=== PATIENT | male | born 2000 | race Caucasian/White ===

== ENCOUNTER 2020-08-18 14:20 | Inpatient (IN) ==
[2020-08-18 16:22] LABS: Basophils # 0.1 10*3/uL (0.0-0.2); Basophils % 0.5 % (0.0-0.8); Eosinophils # 1.1 10*3/uL (0.0-0.87); Eosinophils % 11.9 % (0.00-10.9); Hematocrit 34.5 VOL% (42.0-52.0); Hemoglobin 12.2 GM/DL (14.0-18.0); Immature Granulocytes % 0.5 %; Immature Granulocytes Absolute 0.05 #; Lymphocytes # 1.1 10*3/uL (1.4-4.0); Lymphocytes % 11.8 % (21.2-54.2); Mean Corpuscular HGB Conc 35.4 GM/DL (32-36); Mean Corpuscular Volume 89.1 FL (87-102); Mean Platelet Volume 10.2 FL (9.6-12.0); Neutrophils % 62.3 % (38.7-73.9); Platelet Count 246 T/CUMM (130-400); Red Blood Count 3.87 MC/CUMM (3.8-5.5); Red Cell Distribution Width 12.9 % (9.3-17.3); White Blood Count 9.3 T/CUMM (4-12)
[2020-08-18 16:32] LABS: INR 1.2; PT Patient Result 13.7 SECS (10.5-12.0)
[2020-08-18] MEDS ORDERED: SODIUM CHLORIDE 0.9% 1,000 ML IV STA (16:35)
[2020-08-18 16:41] LABS: Bilirubin,Total 0.9 MG/DL (0.2-1.0); Calcium 7.9 MG/DL (8.5-10.1); Osmolality,Calculated 266.2 MOS/KG (273-304); Total Protein 6.3 G/DL (6.4-8.2)
[2020-08-18 17:09] LABS: Eosinophils 9 % (0-10); Lymphocytes 11 % (20-55); Segmented Neutrophils 72 % (50-85); Total Cells Counted 100
[2020-08-18] MEDS ORDERED: metroNIDAZOLE INJ 500 MG/100 ML PREMIX IV STA (17:38)
[2020-08-18] MEDS ORDERED: cefTRIAXone 1,000 MG in SODIUM CHLORIDE 0.9% 100 ML IV STA (17:38)
[2020-08-18] MEDS ORDERED: DEXTROSE 50% 25 GM/50 ML VIAL IV PRN (18:11)
[2020-08-18] MEDS ORDERED: GLUCAGON 1 MG VIAL IM PRN (18:11)
[2020-08-18 21:56] LABS: Hematocrit 30.5 VOL% (42.0-52.0)
[2020-08-19] MEDS: ACETAMINOPHEN 325 MG TABLET PO PRN (03:21)
[2020-08-19] MEDS: SODIUM CHLORIDE 0.9% 1,000 ML IV SCH ×4 (04:20→21:23)
[2020-08-19 05:43] LABS: Basophils % 0.5 % (0.0-0.8); Eosinophils # 1.3 10*3/uL (0.0-0.87); Eosinophils % 15.5 % (0.00-10.9); Hematocrit 32.4 VOL% (42.0-52.0); Hemoglobin 11.4 GM/DL (14.0-18.0); Immature Granulocytes % 0.7 %; Immature Granulocytes Absolute 0.06 #; Lymphocytes # 0.8 10*3/uL (1.4-4.0); Lymphocytes % 9.9 % (21.2-54.2); Mean Corpuscular HGB Conc 35.2 GM/DL (32-36); Mean Corpuscular Volume 89.5 FL (87-102); Mean Platelet Volume 10.5 FL (9.6-12.0); Monocytes % 14.5 % (1.7-12.7); Neutrophils % 58.9 % (38.7-73.9); Platelet Count 223 T/CUMM (130-400); Red Blood Count 3.62 MC/CUMM (3.8-5.5); Red Cell Distribution Width 12.7 % (9.3-17.3); White Blood Count 8.5 T/CUMM (4-12)
[2020-08-19 06:02] LABS: Calcium 7.9 MG/DL (8.5-10.1); Osmolality,Calculated 270.8 MOS/KG (273-304)
[2020-08-19 06:06] LABS: Band Neutrophils 10 % (0-10); Eosinophils 17 % (0-10); Lymphocytes 14 % (20-55); Platelet Estimate Normal; Segmented Neutrophils 53 % (50-85); Total Cells Counted 100
[2020-08-19] MEDS: PANTOPRAZOLE 40 MG TABLET PO SCH (08:58)
[2020-08-19] MEDS: POTASSIUM CHLORIDE 20 MEQ PACK PO SCH ×2 (08:58→10:32)
[2020-08-19 10:16] LABS: Hematocrit 31.5 VOL% (42.0-52.0); Hemoglobin 10.8 GM/DL (14.0-18.0)
[2020-08-19 15:53] LABS: Hematocrit 30.6 VOL% (42.0-52.0); Hemoglobin 10.3 GM/DL (14.0-18.0)
[2020-08-20 04:44] LABS: Basophils % 0.6 % (0.0-0.8); Eosinophils % 28.1 % (0.00-10.9); Hematocrit 30.5 VOL% (42.0-52.0); Hemoglobin 10.6 GM/DL (14.0-18.0); Immature Granulocytes Absolute 0.07 #; Lymphocytes # 0.8 10*3/uL (1.4-4.0); Lymphocytes % 11.6 % (21.2-54.2); Mean Corpuscular HGB Conc 34.8 GM/DL (32-36); Mean Corpuscular Volume 90.8 FL (87-102); Mean Platelet Volume 10.5 FL (9.6-12.0); Monocytes % 10.9 % (1.7-12.7); Neutrophils % 47.8 % (38.7-73.9); Platelet Count 220 T/CUMM (130-400); Red Blood Count 3.36 MC/CUMM (3.8-5.5); Red Cell Distribution Width 12.9 % (9.3-17.3); White Blood Count 7.3 T/CUMM (4-12)
[2020-08-20 04:56] LABS: Calcium 7.8 MG/DL (8.5-10.1); Osmolality,Calculated 270.7 MOS/KG (273-304); Potassium 3.6 MMOL/L (3.5-5.1)
[2020-08-20 05:06] LABS: Band Neutrophils 3 % (0-10); Eosinophils 29 % (0-10); Lymphocytes 12 % (20-55); Platelet Estimate Adequate; Segmented Neutrophils 43 % (50-85); Total Cells Counted 100
[2020-08-20 05:07] LABS: Hypochromasia 1+; Microcytosis 1+; Ovalocytes Slight
[2020-08-20] MEDS: SODIUM CHLORIDE 0.9% 1,000 ML IV SCH ×2 (06:33→14:22)
[2020-08-20] MEDS: PANTOPRAZOLE 40 MG TABLET PO SCH (08:01)
[2020-08-20] MEDS: ACETAMINOPHEN 325 MG TABLET PO PRN (14:38)
[2020-08-20] MEDS: MESALAMINE 800 MG TABLET PO SCH ×2 (14:38→21:57)
[2020-08-21] MEDS: ACETAMINOPHEN 325 MG TABLET PO PRN (06:35)
[2020-08-21 07:21] LABS: Basophils % 0.6 % (0.0-0.8); Eosinophils # 2.5 10*3/uL (0.0-0.87); Hematocrit 32.8 VOL% (42.0-52.0); Immature Granulocytes Absolute 0.07 #; Lymphocytes % 13.8 % (21.2-54.2); Mean Corpuscular HGB Conc 33.5 GM/DL (32-36); Mean Corpuscular Volume 92.7 FL (87-102); Mean Platelet Volume 10.2 FL (9.6-12.0); Monocytes % 11.3 % (1.7-12.7); Neutrophils % 38.3 % (38.7-73.9); Platelet Count 266 T/CUMM (130-400); Red Blood Count 3.54 MC/CUMM (3.8-5.5); Red Cell Distribution Width 12.8 % (9.3-17.3); White Blood Count 7.2 T/CUMM (4-12)
[2020-08-21 07:41] LABS: Calcium 8.1 MG/DL (8.5-10.1); Osmolality,Calculated 274.5 MOS/KG (273-304); Potassium 3.6 MMOL/L (3.5-5.1)
[2020-08-21 09:41] LABS: Band Neutrophils 3 % (0-10); Eosinophils 37 % (0-10); Lymphocytes 17 % (20-55); Platelet Estimate Normal; Segmented Neutrophils 32 % (50-85); Total Cells Counted 100
[2020-08-21] MEDS: MESALAMINE 800 MG TABLET PO SCH ×3 (10:01→20:12)
[2020-08-21] MEDS: PANTOPRAZOLE 40 MG TABLET PO SCH (10:01)
[2020-08-22 06:48] LABS: Basophils % 0.5 % (0.0-0.8); Eosinophils # 2.1 10*3/uL (0.0-0.87); Eosinophils % 33.5 % (0.00-10.9); Hematocrit 31.1 VOL% (42.0-52.0); Hemoglobin 10.8 GM/DL (14.0-18.0); Immature Granulocytes % 1.1 %; Immature Granulocytes Absolute 0.07 #; Lymphocytes % 15.8 % (21.2-54.2); Mean Corpuscular HGB Conc 34.7 GM/DL (32-36); Mean Corpuscular Volume 89.6 FL (87-102); Mean Platelet Volume 9.9 FL (9.6-12.0); Monocytes % 10.6 % (1.7-12.7); Neutrophils % 38.5 % (38.7-73.9); Platelet Count 280 T/CUMM (130-400); Red Blood Count 3.47 MC/CUMM (3.8-5.5); Red Cell Distribution Width 12.9 % (9.3-17.3); White Blood Count 6.2 T/CUMM (4-12)
[2020-08-22 07:04] LABS: Calcium 8.2 MG/DL (8.5-10.1); Osmolality,Calculated 274.4 MOS/KG (273-304); Potassium 3.6 MMOL/L (3.5-5.1)
[2020-08-22 07:15] LABS: Eosinophils 35 % (0-10); Hypochromasia 1+; Lymphocytes 14 % (20-55); Microcytosis 1+; Platelet Estimate Adequate; Segmented Neutrophils 39 % (50-85); Total Cells Counted 100
[2020-08-22] MEDS: MESALAMINE 800 MG TABLET PO SCH ×3 (09:15→21:01)
[2020-08-22] MEDS: PANTOPRAZOLE 40 MG TABLET PO SCH (09:15)
[2020-08-22] MEDS ORDERED: POLYETHYLENE GLYCOL POWDER 255 GM BOTTLE PO ONE (18:00)
[2020-08-23 04:51] LABS: Basophils % 0.5 % (0.0-0.8); Eosinophils # 2.2 10*3/uL (0.0-0.87); Eosinophils % 30.6 % (0.00-10.9); Hematocrit 35.2 VOL% (42.0-52.0); Hemoglobin 11.9 GM/DL (14.0-18.0); Immature Granulocytes % 1.1 %; Immature Granulocytes Absolute 0.08 #; Lymphocytes # 1.4 10*3/uL (1.4-4.0); Lymphocytes % 18.8 % (21.2-54.2); Mean Corpuscular HGB Conc 33.8 GM/DL (32-36); Mean Corpuscular Volume 92.1 FL (87-102); Mean Platelet Volume 9.8 FL (9.6-12.0); Monocytes % 11.4 % (1.7-12.7); Neutrophils % 37.6 % (38.7-73.9); Platelet Count 371 T/CUMM (130-400); Red Blood Count 3.82 MC/CUMM (3.8-5.5); White Blood Count 7.3 T/CUMM (4-12)
[2020-08-23 05:02] LABS: PT Patient Result 11.5 SECS (10.5-12.0)
[2020-08-23 05:14] LABS: Eosinophils 32 % (0-10); Lymphocytes 15 % (20-55); Platelet Estimate Normal; Segmented Neutrophils 44 % (50-85); Total Cells Counted 100
[2020-08-23 05:34] LABS: Calcium 8.5 MG/DL (8.5-10.1); Osmolality,Calculated 272.5 MOS/KG (273-304); Potassium 3.3 MMOL/L (3.5-5.1)
[2020-08-23] MEDS ORDERED: LACTATED RINGERS 1,000 ML IV SCH (08:00)
[2020-08-23] MEDS: MESALAMINE 800 MG TABLET PO SCH ×2 (09:32→15:42)
[2020-08-23] MEDS: PANTOPRAZOLE 40 MG TABLET PO SCH (09:33)
[2020-08-23] MEDS: methylPREDNISolone SOD SUC 40 MG/1 ML VIAL IV SCH ×2 (15:42→21:32)
[2020-08-24] MEDS: methylPREDNISolone SOD SUC 40 MG/1 ML VIAL IV SCH ×2 (06:00→13:33)
[2020-08-24] MEDS: PANTOPRAZOLE 40 MG TABLET PO SCH (08:32)
[2020-08-24 12:23] VITALS: BP 120/68
== END 2020-08-24 15:47 | disposition home or self-care (01) | DRG 386 ==
LOC: N.ED 14:20 → N.EDINP 18:12 → N.5E 19:28
PROVIDERS: ADMIT Internal Medicine; ATTEND Internal Medicine
PROC: COLONBX (2020-08-23 08:50)